=== PATIENT | female | born 1995 | race Caucasian/White ===

== ENCOUNTER 2019-02-27 10:53 | Emergency (ER) | payer BC, OTHER ==
[2019-02-27 12:00] VITALS: BP 126/79
--- NOTE | 2019-02-27 12:09 | UC ---
Complaint Female HPI - HPI Summary HPI Summary: TREATED WITH ANTIBIOTICS 4 WEEKS AGO FOR TONSILLITIS. PATIENT HAS A CONTINUED COUGH AND ANTERIOR CERVIAL SWOLLEN LYMPH TISSUE SHE HAS BEEN CHECKED FOR MONO AND HAD A FULL THROAT CULTURE DONE THAT CAME BACK NEGATIVE. THIS AM SHE AWOKE WITH DISCOFORT WITH URINATION NO FEVERS, CHILLS NAUSEA OR VOMITING - History Of Current Complaint Chief Complaint: UCGU Stated Complaint: SINUS CONGESTION Time Seen by Provider: 02/27/19 12:06 Hx Obtained From: Patient Hx Last Menstrual Period: 02/06/19 ?: No Onset/Duration: Sudden Onset, Lasting Days - THIS MORNING UTI SX STARTED, Lasting Weeks - 4-6 WEEKS AGO URI SYMPTOMS BEGAN Timing: Constant Pain Intensity: 1 Pain Scale Used: 0-10 Numeric Character: Dull Aggravating Factor(s): Urination Alleviating Factor(s): Nothing Associated Signs And Symptoms: Positive: Negative. Negative: Fever, Back Pain, Vaginal Discharge, Nausea - Allergies/Home Medications Allergies/Adverse Reactions: Allergies Allergy/AdvReac Type Severity Reaction Status Date / Time sulfamethoxazole Allergy Hives Verified 02/27/19 11:54 [From Bactrim] trimethoprim [From Bactrim] Allergy Hives Verified 02/27/19 11:54 Home Medications: Home Medications Norgestimate-Ethinyl Estradiol [Sprintec 28 Day Tablet] 1 tab PO DAILY 02/27/19 [History Confirmed 02/27/19] PMH/Surg Hx/FS Hx/Imm Hx Previously Healthy: Yes - Surgical History Surgical History: None - Family History Known Family History: Positive: None - Social History Occupation: Student Lives: Dormitory/Roommates Alcohol Use: Weekly Substance Use Type: None Smoking Status (MU): Never Smoked Tobacco Review of Systems All Other Systems Reviewed And Are Negative: Yes Constitutional: Positive: Negative Skin: Positive: Negative Eyes: Positive: Negative ENT: Positive: Sore Throat - RESOLVED, Sinus Congestion Respiratory: Positive: Cough Cardiovascular: Positive: Negative Gastrointestinal: Positive: Negative Genitourinary: Positive: Dysuria Motor: Positive: Negative Neurovascular: Positive: Negative Musculoskeletal: Positive: Negative Neurological: Positive: Negative Psychological: Positive: Negative Is Patient Immunocompromised?: No Physical Exam Triage Information Reviewed: Yes Appearance: Well-Appearing, No Pain Distress, Well-Nourished Vital Signs: Initial Vital Signs Temp 98.4 F 02/27/19 11:55 Pulse 85 02/27/19 11:55 Resp 16 02/27/19 11:55 BP 126/79 02/27/19 11:55 Pulse Ox 98 02/27/19 11:55 Vital Signs Reviewed: Yes Eye Exam: Normal Eyes: Positive: Conjunctiva Clear ENT Exam: Normal ENT: Positive: Normal ENT inspection, Hearing grossly normal, Pharynx normal, TMs normal, Uvula midline. Negative: Nasal congestion, Tonsillar swelling, Trismus, Muffled voice, Hoarse voice, Dental tenderness, Sinus tenderness Dental Exam: Normal Dental: Positive: Cervical Lymphadenopathy - MILD Neck exam: Normal Neck: Positive: Supple, Nontender, No Lymphadenopathy Respiratory Exam: Normal Respiratory: Positive: Chest non-tender, Lungs clear, Normal breath sounds, No respiratory distress, No accessory muscle use, Respiratory distress Cardiovascular Exam: Normal Cardiovascular: Positive: RRR, No Murmur, Pulses Normal, Brisk Capillary Refill Abdomen Description: Negative: CVA Tenderness (R), CVA Tenderness (L) Musculoskeletal Exam: Normal Musculoskeletal: Positive: Strength Intact, ROM Intact, No Edema Neurological Exam: Normal Neurological: Positive: Alert, Muscle Tone Normal Psychological Exam: Normal Skin Exam: Normal Diagnostics - Laboratory Lab Results: TRACE LYSED BLOOD AND LEUKOESTERACE Complaint Female Dx - Course Course Of Treatment: INCREASE FLUIDS, MACROBID, CULTURE URINE---MDI AND SHOURT COURSE OF PREDNISONE FOR COUGH AND THROAT IRRITATION - Differential Dx/Diagnosis Provider Diagnosis: Post-viral cough syndrome, UTI (urinary tract infection) Discharge ED - Sign-Out/Discharge Documenting (check all that apply): Patient Departure All imaging exams completed and their final reports reviewed: No Studies - Discharge Plan Condition: Stable Disposition: HOME Prescriptions: Albuterol HFA INHALER* [Ventolin HFA Inhaler*] 2 puff INH Q4H PRN #1 mdi PRN Reason: Cough Nitrofurantoin Monohyd/M-Cryst [Macrobid 100 mg Capsule] 100 mg PO BID 5 Days # 10 cap predniSONE [Prednisone 20 MG TAB] 20 mg PO DAILY #9 tablet Patient Education Materials: Urinary Tract Infection in Women (ED), Acute Cough (ED) Referrals: [facility] [Outside] - If Needed - Billing Disposition and Condition Condition: STABLE Disposition: Home
--- NOTE | 2019-02-28 16:02 | UC ---
- Progress Note Progress Note: urine no growth no change [email or web address] 02/28/19 Course/Dx - Diagnoses Provider Diagnoses: Post-viral cough syndrome, UTI (urinary tract infection) Discharge ED - Sign-Out/Discharge Documenting (check all that apply): Post-Discharge Follow Up All imaging exams completed and their final reports reviewed: No Studies - Discharge Plan Condition: Stable Disposition: HOME Prescriptions: Albuterol HFA INHALER* [Ventolin HFA Inhaler*] 2 puff INH Q4H PRN #1 mdi PRN Reason: Cough Nitrofurantoin Monohyd/M-Cryst [Macrobid 100 mg Capsule] 100 mg PO BID 5 Days # 10 cap predniSONE [Prednisone 20 MG TAB] 20 mg PO DAILY #9 tablet Patient Education Materials: Urinary Tract Infection in Women (ED), Acute Cough (ED) Referrals: [facility] [Outside] - If Needed - Billing Disposition and Condition Condition: STABLE Disposition: Home
== END 2019-02-27 12:31 | disposition home or self-care (01) ==
LOC: UCEAST 10:53
DX: N39.0 Urinary tract infection, site not specified (principal); R05 Cough; Z88.2 Allergy status to sulfonamides
CPT/HCPCS: 81003; 84702; 87086; 99212; G0463

== ENCOUNTER 2019-03-10 16:24 | Emergency (ER) | payer BC ==
[2019-03-10 18:19] VITALS: BP 130/90
--- NOTE | 2019-03-10 19:08 | UC ---
Throat Pain/Nasal Joe HPI - HPI Summary HPI Summary: 23-year-old female presents with complaints of persistent sore throat and swollen lymph nodes. Patient states that she was initially seen on multiple occasions at [facility] urgent care, had negative rapid strep, throat culture, and Monospot. Patient was seen at this facility on 02/27/2019 with similar complaints as well as UTI symptoms. She was given short course of prednisone and treated for a UTI with a course of Macrobid at that time. Patient states that her sore throat and swollen lymph nodes did improve some while on the prednisone however did not entirely resolve. She states that she is no longer having any urinary symptoms however is concerned that her UTI may have fully resolved and is requesting retesting at this time. She is presently having her menses. Denies fever, chills, nasal congestion, runny nose, ear pain, cough, dysphagia, abdominal pain, nausea, vomiting, dysuria, frequency, urgency, hematuria, or vaginal discharge. - History of Current Complaint Chief Complaint: UCRespiratory Stated Complaint: SORE THROAT Time Seen by Provider: 03/10/19 18:09 Hx Obtained From: Patient Hx Last Menstrual Period: 03/10/19 Pain Intensity: 6 - Allergies/Home Medications Allergies/Adverse Reactions: Allergies Allergy/AdvReac Type Severity Reaction Status Date / Time sulfamethoxazole Allergy Hives Verified 03/10/19 18:18 [From Bactrim] trimethoprim [From Bactrim] Allergy Hives Verified 03/10/19 18:18 PMH/Surg Hx/FS Hx/Imm Hx GI/ History: Other - IBS Psychological History: Anxiety - Surgical History Surgical History: None - Family History Known Family History: Positive: Non-Contributory - Social History Occupation: Employed Full-time Lives: With Family Alcohol Use: Occasionally Substance Use Type: None Smoking Status (MU): Never Smoked Tobacco Review of Systems All Other Systems Reviewed And Are Negative: Yes Constitutional: Negative: Fever, Chills, Fatigue Skin: Negative: Rash Eyes: Negative: Drainage, Eye Redness ENT: Positive: Sore Throat. Negative: Ear Ache, Nasal Discharge, Sinus Congestion, Sinus Pain/Tenderness Respiratory: Negative: Shortness Of Breath, Cough Cardiovascular: Positive: Negative Gastrointestinal: Negative: Abdominal Pain, Vomiting, Nausea Genitourinary: Negative: Dysuria, Hematuria, Frequency, Urgency, Vaginal/Penile Discharge Musculoskeletal: Positive: Negative Neurological: Positive: Negative Is Patient Immunocompromised?: No Physical Exam - Summary Physical Exam Summary: GENERAL APPEARANCE: Well developed, well nourished, alert and cooperative, and appears to be in no acute distress. EYES: Conjunctiva clear. No drainage. EARS: External auditory canals and tympanic membranes clear, hearing grossly intact. NOSE: No nasal discharge. THROAT: Pharynx normal. 1+ tonsils without exudate or lesions. Uvula midline. NECK: Neck supple. Single, tender, enlarged left anterior cervical lymph node. CARDIAC: Normal S1 and S2. No S3, S4 or murmurs. Rhythm is regular. There is no peripheral edema, cyanosis or pallor. Extremities are warm and well perfused. Capillary refill is less than 2 seconds. Peripheral pulses intact. LUNGS: Clear to auscultation without rales, rhonchi, wheezing or diminished breath sounds. ABDOMEN: Positive bowel sounds. Soft, nondistended, nontender. No guarding or rebound. No masses or hepatosplenomegally. No CVA tenderness. MUSKULOSKELETAL: ROM intact to all extremities. No joint erythema or tenderness. Normal muscular development. Normal gait. SKIN: Skin normal color, texture and turgor with no lesions or eruptions. Triage Information Reviewed: Yes Vital Signs: Initial Vital Signs Temp 98.1 F 03/10/19 18:12 Pulse 83 03/10/19 18:12 Resp 16 03/10/19 18:12 BP 130/90 03/10/19 18:12 Pulse Ox 97 03/10/19 18:12 Vital Signs Reviewed: Yes Throat Pain/Nasal Course/Dx - Course Course Of Treatment: 23-year-old female presents with complaints of persistent sore throat and swollen lymph nodes. Patient states that she was initially seen on multiple occasions at [facility] urgent care, had negative rapid strep, throat culture, and Monospot. Patient was seen at this facility on 02/27/2019 with similar complaints as well as UTI symptoms. She was given short course of prednisone and treated for a UTI with a course of Macrobid at that time. Patient states that her sore throat and swollen lymph nodes did improve some while on the prednisone however did not entirely resolve. She states that she is no longer having any urinary symptoms however is concerned that her UTI may have fully resolved and is requesting retesting at this time. She is presently having her menses. Denies fever, chills, nasal congestion, runny nose, ear pain, cough, dysphagia, abdominal pain, nausea, vomiting, dysuria, frequency, urgency, hematuria, or vaginal discharge. Afebrile. Vital signs stable. Patient had normal pharynx, 1+ tonsils without exudate or lesions, a single, tender, enlarged left anterior cervical lymph node, and otherwise unremarkable exam. Rapid strep test was negative. [id number] urinalysis showed 2+ blood but was otherwise within normal limits. These results were reviewed with the patient. I did discuss with the patient that with the negative rapid strep and considering the duration of her symptoms that it may be warranted to repeat her mono testing however patient is declining at this time. Recommending continued symptomatic treatment and will have patient follow-up with ENT within a week for further evaluation and treatment. Anticipatory guidance and warning symptoms were reviewed with the patient. Verbalizes understanding and agrees with plan of care. - Differential Dx/Diagnosis Differential Diagnosis/HQI/PQRI: Mononucleosis, Peritonsillar Abscess, Pharyngitis, Tonsillitis, URI, Other - UTI, PID, STI, kidney stone Provider Diagnosis: Pharyngitis Discharge ED - Sign-Out/Discharge Documenting (check all that apply): Patient Departure All imaging exams completed and their final reports reviewed: No Studies - Discharge Plan Condition: Stable Disposition: HOME Patient Education Materials: Pharyngitis (ED) Referrals: No Primary Care Phys,NOPCP [Primary Care Provider] - José Chaparro MD [Medical Doctor] - 7 Days (Call for appointment.) Additional Instructions: The urine test performed in the clinic today was normal except for some blood which is most likely from your menstrual period. The urinary tract infection you had at your last visit appears to have cleared. Your rapid strep test in the clinic today was negative. You have elected to defer testing for mononucleosis at this time. Drink plenty of fluids to avoid dehydration especially if you are running any fever. Use salt water gargles several times a day. Take over the counter acetaminophen (Tylenol) or ibuprofen (Advil, Motrin) according to directions as needed for pain or fever. You may also use Chloraseptic spray or Cepacol lonzenges according to directions which contain a numbing medication and can provide some temporary relief from your sore throat. Return here or follow up with the Ear, Nose, and Throat specialist within 1 week. Call for appointment. Seek immediate medical attention in the emergency room if you have fever greater than 100.5 F despite taking acetaminophen or ibuprofen, are unable to swallow or develop drooling, are unable to open your mouth fully, are unable to eat or drink, have pain that is not relieved with over the counter pain medication, or have any difficulty breathing. - Billing Disposition and Condition Condition: STABLE Disposition: Home
== END 2019-03-10 19:39 | disposition home or self-care (01) ==
LOC: UCEAST 16:24
DX: J02.9 Acute pharyngitis, unspecified (principal); Z88.2 Allergy status to sulfonamides
CPT/HCPCS: 81003; 84702; 87086; 87651; 99211; G0463